=== PATIENT | female | born 1970 | race Caucasian/White ===

== ENCOUNTER → 2017-03-09 | Outpatient (CLI) | payer BC | LOC: NM 09:26 | DX: R14.0 Abdominal distension (gaseous) (principal); K80.20 Calculus of gallbladder without cholecystitis without obstruction; K21.9 Gastro-esophageal reflux disease without esophagitis; R93.2 Abnormal findings on diagnostic imaging of liver and biliary tract | CPT/HCPCS: 78226; A9537 ==

== ENCOUNTER → 2020-12-01 | Outpatient (CLI) | payer BC ==
[~2020-12-01] MED LIST: FLOVENT 220.1 GM/INH INH; IBUPROFEN800 MG PO; MEDROL DOSEPAK 24 MG PO; NASONEX17 GM; PROAIR DIGIHAL90 MCG INH
== END ==
LOC: MAMO 13:29
DX: R13.10 Dysphagia, unspecified (principal); E07.89 Other specified disorders of thyroid; E04.2 Nontoxic multinodular goiter
CPT/HCPCS: 76536

== ENCOUNTER → 2020-12-28 | Outpatient (CLI) | payer BC | LOC: MAMO 14:00 | DX: Z12.31 Encounter for screening mammogram for malignant neoplasm of breast (principal); R13.10 Dysphagia, unspecified; E07.89 Other specified disorders of thyroid; N64.89 Other specified disorders of breast | CPT/HCPCS: 77063; 77067 ==

== ENCOUNTER → 2021-04-08 | Outpatient (CLI) | payer BC | LOC: EXRD 08:23 | DX: R07.9 Chest pain, unspecified (principal); R06.02 Shortness of breath | CPT/HCPCS: 71046 ==

== ENCOUNTER → 2021-04-12 | Outpatient (CLI) | payer BC | LOC: HEART 5 07:48 | DX: R07.9 Chest pain, unspecified (principal); R12 Heartburn; R06.02 Shortness of breath | CPT/HCPCS: 78452; 93306; A9502; J2785 ==

== ENCOUNTER → 2021-07-18 | Outpatient (CLI) | payer BC | LOC: US 14:00 | DX: R94.6 Abnormal results of thyroid function studies (principal) | CPT/HCPCS: 76536 ==